=== PATIENT | male | born 1985 | race Caucasian/White ===

== ENCOUNTER 2018-01-01 23:34 | Emergency (ER) | payer OTHER ==
[~2018-01-01] VITALS: Ht 170.2 cm; Wt 135.6 kg
[~2018-01-01 23:34] MED LIST: CLIN300 PO; HYDACE5 PO; IBUP400; PROC5 PO; RXHYDACE PO
[2018-01-02 00:11] LABS: BASOPHILS ABSOLUTE AUTO 0.09 K/mm3 (0.00-0.23); BASOPHILS PERCENT AUTO 1 % (0-2); EOSINOPHILS ABSOLUTE AUTO 0.56 K/mm3 (0.00-0.68); EOSINOPHILS PERCENT AUTO 3 % (0-6); Hematocrit 44.1 % (37.0-53.0); Hemoglobin 14.4 g/dL (13.5-17.5); IMMATURE GRAN ABSOLUTE AUTO 0.06 K/mm3 (0.00-0.10); IMMATURE GRAN PERCENT AUTO 0 % (0-1); LYMPHOCYTES ABSOLUTE AUTO 1.25 K/mm3 (0.84-5.20); LYMPHOCYTES PERCENT AUTO 7 % (21-46); MONOCYTES ABSOLUTE AUTO 0.94 K/mm3 (0.16-1.47); MONOCYTES PERCENT AUTO 6 % (4-13); Mean Corpuscular HGB 28.6 pg (26.0-34.0); Mean Corpuscular HGB Conc 32.7 g/dL (31.5-36.5); Mean Corpuscular Volume 88 fL (80-100); Mean Platelet Volume 11.3 fL (9.1-12.4); NEUTROPHILS ABSOLUTE AUTO 13.97 K/mm3 (1.96-9.15); NEUTROPHILS PERCENT AUTO 83 % (41-73); Platelet Count 319 K/mm3 (150-400); RDW Coefficient Variation 13.8 % (11.7-14.2); RDW Standard Deviation 44.2 fL (35.1-46.3); Red Blood Cell Count 5.03 M/mm3 (4.30-5.90); White Blood Cell Count 16.87 K/mm3 (4.00-11.30)
[2018-01-02 00:28] LABS: Alanine Aminotransfer (ALT/SGP 28 U/L (12-78); Albumin, Blood 3.8 g/dL (3.4-5.0); Albumin/Globulin Ratio 0.8 (0.8-1.8); Alk Phos 131 U/L (50-136); Anion Gap 8 mmol/L (6-16); Aspartate Aminotrans (AST/SGOT 20 U/L (12-37); Bilirubin, Total 0.9 mg/dL (0.1-1.0); Blood Urea Nitrogen 10 mg/dL (8-24); Bun/Creatinine Ratio 13.7 (12.0-20.0); CO2, Blood 27 mmol/L (21-32); Chloride, Blood 104 mmol/L (98-108); Creatinine, Blood 0.73 mg/dL (0.60-1.20); Globulin, Blood 4.9 g/dL (2.2-4.0); Glomerular Filtration Rate >60 (60-); Glucose, Blood 129 mg/dL (70-99); Potassium, Blood 4.2 mmol/L (3.5-5.5); Sodium, Blood 139 mmol/L (136-145); Total Protein, Blood 8.7 g/dL (6.4-8.2)
[2018-01-02 02:02] LABS: Influenza A Negative (NEGATIVE); Influenza B Negative (NEGATIVE)
[2018-01-02] MEDS ORDERED: Zithromax250 MG PO (02:44)
== END 2018-01-02 03:04 | disposition home or self-care (01) ==
LOC: ER 23:34
PROVIDERS: Emergency Medicine
DX: J18.9 Pneumonia, unspecified organism (principal); J98.01 Acute bronchospasm
CPT/HCPCS: 36415; 71046; 80053; 85025; 87804; 94640; 99284-25

== ENCOUNTER 2018-07-14 21:21 | Emergency (ER) | payer OTHER ==
[~2018-07-14] VITALS: Ht 172.7 cm; Wt 156.5 kg
[~2018-07-14 21:21] MED LIST changes: +Zithromax250 MG PO
[2018-07-14 22:14] LABS: Influenza A Negative (NEGATIVE); Influenza B Negative (NEGATIVE)
== END 2018-07-14 23:32 | disposition left against medical advice (07) ==
LOC: ER 21:21
PROVIDERS: Emergency Medicine
DX: Z53.21 Procedure and treatment not carried out due to patient leaving prior to being seen by health care provider (principal)
CPT/HCPCS: 71046; 87804; 99283-25

== ENCOUNTER 2022-02-06 18:41 | Inpatient (IN) | payer MEDICARE, OTHER ==
[~2022-02-06] VITALS: Ht 182.9 cm; Wt 170.3 kg
[2022-02-06 20:21] LABS: BASOPHILS ABSOLUTE AUTO 0.08 K/mm3 (0.00-0.23); BASOPHILS PERCENT AUTO 1 % (0-2); EOSINOPHILS PERCENT AUTO 5 % (0-6); Hematocrit 42.7 % (37.0-53.0); Hemoglobin 13.9 g/dL (13.5-17.5); IMMATURE GRAN ABSOLUTE AUTO 0.06 K/mm3 (0.00-0.10); IMMATURE GRAN PERCENT AUTO 1 % (0-1); LYMPHOCYTES ABSOLUTE AUTO 1.43 K/mm3 (0.84-5.20); LYMPHOCYTES PERCENT AUTO 14 % (21-46); MONOCYTES ABSOLUTE AUTO 0.52 K/mm3 (0.16-1.47); MONOCYTES PERCENT AUTO 5 % (4-13); Mean Corpuscular HGB 27.6 pg (26.0-34.0); Mean Corpuscular HGB Conc 32.6 g/dL (31.5-36.5); Mean Corpuscular Volume 85 fL (80-100); NEUTROPHILS ABSOLUTE AUTO 7.38 K/mm3 (1.96-9.15); NEUTROPHILS PERCENT AUTO 74 % (41-73); RDW Coefficient Variation 14.5 % (11.7-14.2); RDW Standard Deviation 44.5 fL (35.1-46.3); Red Blood Cell Count 5.03 M/mm3 (4.30-5.90); White Blood Cell Count 9.97 K/mm3 (4.00-11.30)
[2022-02-06 20:26] LABS: Platelet Count 202 K/mm3 (150-400)
[2022-02-06 20:47] LABS: Albumin, Blood 3.6 g/dL (3.4-5.0); Albumin/Globulin Ratio 0.8 (0.8-1.8); Bilirubin, Total 0.9 mg/dL (0.1-1.0); Bun/Creatinine Ratio 16.7 (12.0-20.0); Calcium, Blood 9.3 mg/dL (8.5-10.1); Creatinine, Blood 0.6 mg/dL (0.60-1.20); Globulin, Blood 4.7 g/dL (2.2-4.0); Potassium, Blood 4.4 mmol/L (3.5-5.5); Total Protein, Blood 8.3 g/dL (6.4-8.2)
[2022-02-06 20:49] LABS: Influenza A, PCR NEGATIVE (NEGATIVE); Influenza B, PCR NEGATIVE (NEGATIVE); Resp Syncytial Virus, PCR NEGATIVE (NEGATIVE); SARS-Cov-2 (COVID-19) PCR, MMC NEGATIVE (NEGATIVE)
[2022-02-07 04:03] LABS: BASOPHILS ABSOLUTE AUTO 0.01 K/mm3 (0.00-0.23); BASOPHILS PERCENT AUTO 0 % (0-2); EOSINOPHILS ABSOLUTE AUTO 0.01 K/mm3 (0.00-0.68); EOSINOPHILS PERCENT AUTO 0 % (0-6); Hemoglobin 12.3 g/dL (13.5-17.5); IMMATURE GRAN ABSOLUTE AUTO 0.04 K/mm3 (0.00-0.10); IMMATURE GRAN PERCENT AUTO 0 % (0-1); LYMPHOCYTES ABSOLUTE AUTO 0.39 K/mm3 (0.84-5.20); LYMPHOCYTES PERCENT AUTO 3 % (21-46); MONOCYTES ABSOLUTE AUTO 0.08 K/mm3 (0.16-1.47); MONOCYTES PERCENT AUTO 1 % (4-13); Mean Corpuscular HGB 27.7 pg (26.0-34.0); Mean Corpuscular HGB Conc 32.4 g/dL (31.5-36.5); Mean Corpuscular Volume 86 fL (80-100); NEUTROPHILS ABSOLUTE AUTO 11.65 K/mm3 (1.96-9.15); NEUTROPHILS PERCENT AUTO 96 % (41-73); Platelet Count 281 K/mm3 (150-400); RDW Coefficient Variation 14.3 % (11.7-14.2); RDW Standard Deviation 44.4 fL (35.1-46.3); Red Blood Cell Count 4.44 M/mm3 (4.30-5.90); White Blood Cell Count 12.18 K/mm3 (4.00-11.30)
[2022-02-07 04:28] LABS: Albumin, Blood 3.3 g/dL (3.4-5.0); Albumin/Globulin Ratio 0.7 (0.8-1.8); Bilirubin, Total 0.4 mg/dL (0.1-1.0); Bun/Creatinine Ratio 20.5 (12.0-20.0); Creatinine, Blood 0.58 mg/dL (0.60-1.20); Globulin, Blood 4.5 g/dL (2.2-4.0); Potassium, Blood 3.4 mmol/L (3.5-5.5); Total Protein, Blood 7.8 g/dL (6.4-8.2)
--- NOTE | 2022-02-07 05:42 | NUR ---
ADMIT NOTE/SHIFT SUMMARY PT ARRIVED TO PCU FROM ED VIA ED STRETCHER AT APPROX 2300. PT WAS SLID BY 5 STAFF FROM ED STRETCHER TO PCU BED. PT ALERT, ORIENTED. ACCOMPANIED BY MOM, WHO IS PNEUMATIC TOOL REPAIRER. PT ON 2L NC, DYSPNEA W/ MOVEMENT, WHEEZES IN BOTTOM LOBES. VSS. BRIEF CHANGED UPON ADMIT TO ROOM, SOILED. PT BEGAN TO BE AUDIBLEY WHEEZY DURING NOC WHILE SLEEPING. RT CALLED TO GIVE BREATHING TX W/ SOME RELIEF. MAG INFUSED PER EMAR. PT ORIENTED TO ROOM, CALL LIGHT. WATCHED TV WHEN ARRIVED TO ROOM, THEN SLEPT MOST OF NIGHT. CALL LIGHT IN REACH.
--- NOTE | 2022-02-07 15:47 | NUR ---
Upon receiving a referral for spiritual care, I visit pt. Pt is sleeping and pt's mother, Skylar, is bedside. She tells me about pt and how she and her adopted him him when he was 2 days old along with his 1 and 1/2 y/o brother both who are developmentally disabled. She also talks about her children and the of her 6 yrs ago. She tells me about pt's and her Jewish beliefs. I provide therapeutic listening and prayer. Skylar shows signs of being encouraged and voices appreciation for the visit.
--- NOTE | 2022-02-07 18:00 | NUR ---
SHIFT SUMMARY PT ALERT, ORIENTED TO SELF, FAMILY. PT COOPERAVTIVE OF CARE. PT TITRATED OFF OF OXYGEN, SATS REMAIN IN THE 90'S ON RA. OTHER VSS THROUGHOUT SHIFT. NO REPORT OF CHEST PAIN/PRESSURE THROUGHOUT SHIFT. NO REPORT OF CHEST PAIN/PRESSURE THROUGHOUT SHIFT. PT INCONTINENT OF URINE AND STOOL, ATTENDS IN PLACE. ATTENDS CHANGED AND BEDDING CHANGED TODAY. PT ABLE TO STAND AND AMBULATE TO RECLINER, SBA, TOLERATED WELL.
--- NOTE | 2022-02-07 21:24 | NUR ---
ASSUMPTION OF CARE THIS RN ASSUMED CARE OF PATIENT AT 1900. REPORT TAKEN FROM JEREMY RN. PATIENT VITALS STABLE; PATIENT ON RA; RT AT BEDSIDE THIS EVENING. WHEEZING AUDIBLE BY THIS RN. PATIENT DENIES SOB AT THIS TIME. PATIENT'S MOTHER AT BEDSIDE. PATIENT WAS CALM AND COOPERATIVE WITH CARE. PATIENT AND MOTHER REPORTED TO THIS RN THAT HE WAS ABLE TO CHANGE HIS ATTENDS BY HIMSELF BEFORE I CAME INTO THE ROOM DUE TO PATIENT VOIDING; REPORTED INCONTINENCE BY PREVIOUS RN. WILL CONTINUE TO MONITOR UNTIL SHIFT CHANGE AT 0700 TOMORROW.
--- NOTE | 2022-02-08 03:57 | NUR ---
SHIFT SUMMARY PATIENT CALM AND COOPERATIVE THROUGHOUT SHIFT. MOTHER REMAINED AT BEDSIDE THROUGH THE NIGHT DUE TO PATIENT BEING DEVELOPMENTALLY DELAYED. PATIENT WAS ABLE TO CHANGE SOILED ATTENDS WITH MOTHERS HELP DURING THE SHIFT, REFUSED NEEDING TO BE CHANGED AROUND 0330; REPORTED INCONTINENCE FROM PREVIOUS SHIFT RN. PATIENT MOVES SELF INDEPENDENTLY IN BED. PATIENT ON RA WITH O2 SATS >90% THROUGHOUT THE SHIFT. BREATHING TX GIVEN NEEDED. NO AUDIBLE WHEEZES HEARD AT THIS TIME. PATIENT WITH STABLE VITALS. PATIENT APPEARS TO BE RESTING COMFORTABLY WITH EQUAL CHEST RISE/FALL NOTED. BED IN LOWEST POSITION AND CALL LIGHT WITHIN REACH. WILL CONTINUE TO MONITOR UNTIL SHIFT CHANGE AT 0700.
--- NOTE | 2022-02-08 10:03 | NUR ---
PAULETTE WAS UP AND IN THE CHAIR FOR BREAKFAST THIS MORNING. HE WAS ANXIOUS TO SEE WHAT HE WOULD GET FOR BREAKFAST, HE DENIED ANY SOB OR DYSPNEA, THEN AFTER ABOUT A HALF HOUR WENT BACK TO BED AND FELT MORE LIKE HE WAS WHEEZING AND NEEDING A TREATMENT. RT WAS CALLED AND HE RECEIVED HIS TREATMENT. HE IS CURRENTLY SLEEPING, MOM AT HIS BEDSIDE. CAME BY AND SAID HE WOULD PROBABLY BE READY FOR DISCHARGE THIS AFTERNOON.
--- NOTE | 2022-02-08 10:41 | NUR ---
LISA AWAKENS AND SITS UP, EASILY SWALLOWING HIS PILLS WITH SOME ORANGE JUICE. HE IS SLIGHTLY SHORT OF BREATH AND A LITTLE WHEEZY, BUT HE DENIES A BREATHING TREATMENT AT THIS TIME. HE IS ABLE TO MOVE INDEPENDENTLY IN BED AND REPOSITION HIMSELF, HE IS ABLE TO MAKE HIS NEEDS KNOWN. MOTHER REMAINS AT THE BEDSIDE.
--- NOTE | 2022-02-08 11:52 | NUR ---
PT REPORTED TO HAVE 6.31 AND 7.12 SECOND PAUSES WITHIN A FEW MINUTES OF EACH OTHER (SEE RECORD). PT WAS LYING IN RECLINING POSITION IN THE BED, SLEEPING. NO NOTICEABLE DISCOMFORT OR APNEIC PERIODS. PT AWAKENED BY THIS RN AND DENIED ANY COMPLAINTS. CALL TO , ORDERS RECEIVED. PT NOW UP TO CHAIR, EATING HIS LUNCH, CONTINUES TO DENY ANY COMPLAINTS.
[2022-02-08 12:26] LABS: Albumin, Blood 3.2 g/dL (3.4-5.0); Albumin/Globulin Ratio 0.7 (0.8-1.8); Bilirubin, Total 0.2 mg/dL (0.1-1.0); Bun/Creatinine Ratio 32.5 (12.0-20.0); Calcium, Blood 8.9 mg/dL (8.5-10.1); Creatinine, Blood 0.52 mg/dL (0.60-1.20); Globulin, Blood 4.3 g/dL (2.2-4.0); Magnesium, Blood 2.4 mg/dL (1.6-2.4); Total Protein, Blood 7.5 g/dL (6.4-8.2)
--- NOTE | 2022-02-08 14:03 | NUR ---
DR. NERI JUST SAW PAULETTE, HE DENIED ANY PROBLEMS FOR HER. SHE IS ORDERING AN ECHO AND AN EKG. TOLD THE MOTHER THAT SHE BELIEVES THIS COULD BE RELATED TO SLEEP APNEA AND THAT HE SHOULD BE TESTED ON A FOLLOW UP BASIS.
--- NOTE | 2022-02-08 14:45 | NUR ---
ECHO BEING PERFORMED, PT DOING WELL DURING PROCEDURE.
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
--- NOTE | 2022-02-09 04:05 | NUR ---
END OF SHIFT SUMMARY NO ACCUTE EVENT PT HAS BEEN VITSLY STABLE HAS HAD NO PAUSES WITH HR. PT DID EXPERIENCE A PERIOD WHEN HE WOKE UP STARTALED. HES ALSO WAS SNORING. HE SEEMS TO HAVE A LOT OF ORAL SECREATIONS AND COUGH IS PRODUCTIVE. WITH ASSCULTATION PT HAS INSIPRATORY WEEZES WHICH MOTHER STATES IS BASELINE DID REQUEST A PRN NEB TREATMENT PT IS ANTICIPATING GOING HOME. WILL PASS TO DAYSHIFT PT MIGHT BENIFIT FROM A SLEEP APNEA EVALUATION. WILL CONTINUE MONITORE AND REPORT TO ONCOMING RN
[2022-02-09] MEDS ORDERED: ALBU90OI INH (10:26)
[2022-02-09] MEDS ORDERED: ALBU90OI6 INH (10:27)
[2022-02-09] MEDS ORDERED: FLUTICASONE-SA1 EAC1 INH (10:28)
[2022-02-09] MEDS ORDERED: OMEP20ER PO (10:29)
[2022-02-09] MEDS ORDERED: PRED20 PO (10:30)
--- NOTE | 2022-02-09 10:45 | NUR ---
DISCHARGE SUMMARY PT ALERT & ORIENTED TO SELF/FAMILY, MOTHER AT BEDSIDE, DENIES SOB, TEO PO, VOIDING/ATTENDS ON, IV DC'D. DC INS PROVIDED. MOM REP UNDERSTANDING THAT MEDS ARE AT [facility] (CALLED AND CONFIRMED THEY ARE OPEN UNTIL 2PM TODAY), FU WITH PCP TO GET SLEEP STUDY SCHEDULED, AND CALL AND GO TO [facility] ON Friday02/11/22 FOR PLACEMENT OF ZIO PATCH. LEFT FLOOR (DECLINING WC) TO GO HOME WITH MOM WITH ALL PERSONAL POSSESSIONS INCLUDING DC PACKET.
== END 2022-02-09 10:43 | disposition home or self-care (01) | DRG 189 ==
LOC: ER 18:41 → PCU 02-07 00:19
PROVIDERS: Internal Medicine; Physician Assistant; ADMIT Internal Medicine
DX: J96.01 Acute respiratory failure with hypoxia (principal); J45.21 Mild intermittent asthma with (acute) exacerbation; Z68.42 Body mass index [BMI] 45.0-49.9, adult; Z20.822 Contact with and (suspected) exposure to COVID-19; G47.33 Obstructive sleep apnea (adult) (pediatric); F81.9 Developmental disorder of scholastic skills, unspecified; D72.828 Other elevated white blood cell count; T38.0X5A Adverse effect of glucocorticoids and synthetic analogues, initial encounter; E66.9 Obesity, unspecified; E87.6 Hypokalemia; I49.5 Sick sinus syndrome; Q86.0 Fetal alcohol syndrome (dysmorphic)
CPT/HCPCS: 0241U; 36415; 71046; 80053; 83735; 83880; 84484; 85025; 93005; 93010; 93306; 94640; 94644; 94645; 94664; 94760; 94762; 96365; 96375; 99285-25; A9270; J1650; J2930; J3475

== ENCOUNTER 2023-02-03 16:27 | Observation (INO) | payer MEDICARE, OTHER ==
[~2023-02-03] VITALS: Ht 172.7 cm; Wt 165.2 kg
[~2023-02-03 16:27] MED LIST changes: +ALBU90OI INH; +ALBU90OI6 INH; +FLUTICASONE-SA1 EAC1 INH; +OMEP20ER PO; +PRED20 PO
[2023-02-03 18:47] LABS: BASOPHILS ABSOLUTE AUTO 0.08 K/mm3 (0.00-0.23); BASOPHILS PERCENT AUTO 1 % (0-2); EOSINOPHILS ABSOLUTE AUTO 0.26 K/mm3 (0.00-0.68); EOSINOPHILS PERCENT AUTO 3 % (0-6); Hematocrit 27.4 % (37.0-53.0); Hemoglobin 7.8 g/dL (13.5-17.5); IMMATURE GRAN ABSOLUTE AUTO 0.04 K/mm3 (0.00-0.10); IMMATURE GRAN PERCENT AUTO 1 % (0-1); LYMPHOCYTES PERCENT AUTO 19 % (21-46); MONOCYTES ABSOLUTE AUTO 0.43 K/mm3 (0.16-1.47); MONOCYTES PERCENT AUTO 5 % (4-13); Mean Corpuscular HGB 24.5 pg (26.0-34.0); Mean Corpuscular HGB Conc 28.5 g/dL (31.5-36.5); Mean Corpuscular Volume 86 fL (80-100); Mean Platelet Volume 11.8 fL (9.1-12.4); NEUTROPHILS ABSOLUTE AUTO 5.87 K/mm3 (1.96-9.15); NEUTROPHILS PERCENT AUTO 71 % (41-73); Platelet Count 323 K/mm3 (150-400); RDW Coefficient Variation 18.4 % (11.7-14.2); RDW Standard Deviation 58.2 fL (35.1-46.3); Red Blood Cell Count 3.19 M/mm3 (4.30-5.90); White Blood Cell Count 8.28 K/mm3 (4.00-11.30)
[2023-02-03 18:55] LABS: Albumin, Blood 3.4 g/dL (3.4-5.0); Albumin/Globulin Ratio 0.8 (0.8-1.8); Bilirubin, Total 0.5 mg/dL (0.1-1.0); Calcium, Blood 9.1 mg/dL (8.5-10.1); Creatinine, Blood 0.77 mg/dL (0.60-1.20); Potassium, Blood 4.3 mmol/L (3.5-5.5); Total Protein, Blood 7.4 g/dL (6.4-8.2)
[2023-02-03] MEDS ORDERED: VITAMIN D310 MC4 (19:45)
[2023-02-03 22:09] LABS: International Normalized Ratio 1.02; Prothrombin Time Results 10.7 Sec (9.7-11.5)
[2023-02-04 04:35] VITALS: BP 139/79
--- NOTE | 2023-02-04 06:48 | NUR ---
ARRIVAL TO PCU/SHIFT SUMMARY RECEIVED REPORT FROM SOLAR PROCESS ENGINEER CHRISTINE HERNÁNDEZ ~0405 THIS AM. PT SHORTLY ARRIVED TO PCU 15 ACCOMPANIED BY PT'S MOTHER. PT TRANSFERRED VIA 1 STAFF ASSIST FROM ER VANESSA TO PCU BED. A/Ox2 AND MOSTLY COOPERATIVE WITH CARE. HX OF ALCOHOL SYNDROME WITH SPEECH/COGNITIVE DIFFICULTIES NOTED. SLOW TO RESPOND AND CAN BE CONFUSED/IMPULSIVE, BUT ABLE TO BE REDIRECTED. CARDIAC, ARRIVED IN SR 60-80'S WITH NO C/O CP, PRESSURE, OR DIZZINESS. SBP HAS BEEN STABLE RANGING 110-140'S. RESPIRATORY, MAINTAINS SPO2 >95% ON RA WITH NO C/O SOB OR DYSPNEA. GI/, BS PRESENT IN ALL QUADRANTS, DENIES ANY N/V OR ABD TENDERNESS. CONTINUES TO BE INCONTINENT OF URINE AND STOOL. ARRIVED TO PCU WITH SOILED ATTENDS. BLACK TARRY STOOL NOTED. PROTONIX gtt INFUSING PER EMAR. EDEMA NOTED IN BLE, BUE, AND ABD. SKIN BREAK DOWN NOTED AROUND BUTTOCKS/COCCYX. SEE PICTURES IN CHART. ASSESSED PT FOR RISKS OF ANY IGNITION SOURCES WELL BEHAVIORS FOR INCREASED RISKS OF FIRE DANGER. PT EDUCATED ON COMMON SOURCES OF IGNITION WELL NEED TO KEEP A SAFE ENVIRONMENT. PT VOICED UNDERSTANDING. NO NEW ORDERS AT THIS TIME, WILL REPORT TO ONCOMING RN. TIFFNAI KHAN OF THIS NOTE
[2023-02-04 06:56] VITALS: BP 97/62
--- NOTE | 2023-02-04 08:00 | NUR ---
Patient resting in bed and needs encouragment to verbal communicate. Speech is slurred but understandable. He is on RA and sats >90%. He self positions for comfort. He has not had BM and no current signs of GIB. He has two 20ga IV's in LACHELLE and has protonix infusing. Family at bedside. Family has no current needs
[2023-02-04 09:22] LABS: Hematocrit 24.6 % (37.0-53.0); Hemoglobin 7.3 g/dL (13.5-17.5)
--- NOTE | 2023-02-04 11:30 | NUR ---
Patient pulled both right arm IV's out accidentally r/t rolling in bed for comfort. CN placed PowerGlide in LACHELLE and is infusing protonix. Did oral care and then dental did consult per request and will follow while here. Mother states he does not allow her to do oral care and patient refuses to go to dentist. He continues to follow simple caommands and have simple conversations. He has 1-2 + edema distal extremities. Still no current signs of GIB. Family is at bedside. We are continueing to look to transfer out for GI consult and mother states she prefers to stay here and wait for consult on
[2023-02-04 11:51] VITALS: BP 111/70
[2023-02-04 14:14] VITALS: BP 111/70
--- NOTE | 2023-02-04 14:45 | NUR ---
Patient received bath. Patient is being transferred to [facility]. Protonix continues. All belonging taken by mother and [facility] ambulance arrived to transport. Patient placed in sweats and self tranferred to [facility].
== END 2023-02-04 15:24 | disposition short-term general hospital (02) ==
LOC: ER 16:27 → PCU 16:28 → ER 02-04 02:41 → PCU 02-04 02:41
PROVIDERS: Internal Medicine; Physician Assistant; Student in an Organized Health Care Education/Training Program; ADMIT Internal Medicine
DX: D62 Acute posthemorrhagic anemia (principal); J45.909 Unspecified asthma, uncomplicated; K92.2 Gastrointestinal hemorrhage, unspecified; Q86.0 Fetal alcohol syndrome (dysmorphic)
CPT/HCPCS: 36415; 80053; 82271; 85014; 85018; 85025; 85610; 86850; 86900; 86901; 94760; 96365; 96366; 96367; 96376; 99284-25; A9270; C9113; G0378; J0696

== ENCOUNTER 2023-06-19 08:42 | Day surgery (SDC) | payer MEDICARE, OTHER ==
[~2023-06-19] VITALS: Ht 170.2 cm; Wt 155.6 kg
[~2023-06-19 08:42] MED LIST changes: +Lactated Ringer's 1,000 ML IV SCH; +OMEP20ER; +VITAMIN D310 MC4
[2023-06-19 09:28] VITALS: BP 127/81
[2023-06-19] MEDS ORDERED: ALBU90OI INH (09:50)
--- NOTE | 2023-06-19 09:57 | NUR ---
PT IN SDS. Mother and brother at bedside. Medical history obtained from mother as patient has cognitive delay from alcohol syndrome. Ambulatory in Day Surgery. History, Chart, Medications and Allergies reviewed before start of procedure. Patient confirms NPO status and agrees with scheduled surgery. Lungs clear T/O to Auscultation. Pre-Op teaching done. Pt and mother verbalizes understanding. Patient States Post-Procedure ride home has been arranged. Patient states prep results clear.
[2023-06-19] MEDS ORDERED: Dexmedetomidine HCL 200 MCG / 2 ML ONE (10:10)
--- NOTE | 2023-06-19 10:25 | NUR ---
06/19/23 1025 Pavel Mcmullen History, Chart, Medications and Allergies reviewed before start of procedure.MONITOR INTACT WITH CONTINUOUS PULSE OXIMETRY, CONTINUOUS END TITAL CO2, AND INTERMITTENT BLOOD PRESSURE.3-LEAD EKG REVIEWED WITH PHYSICIAN PRIOR TO START OF PROCEDURE.O2 VIA N/C INTACT THROUGHOUT SEDATION/PROCEDURE.See Anesthesia record.
[2023-06-19] MEDS ORDERED: propofoL 20 ML IV ONE (10:38)
[2023-06-19] MEDS ORDERED: Lidocaine HCl 4% 5 ML SDA ONE (10:38)
[2023-06-19 11:32] VITALS: BP 126/81
[2023-06-19 11:45] VITALS: BP 117/79
--- NOTE | 2023-06-19 11:50 | NUR ---
Patient up to Ambulate independently. Gait steady. Discharge instructions reviewed with patient. Patient verbalizes understanding. Copy given to patient to take home, WELL FAMILY. Patient States Post-Procedure ride home has been arranged. Discharged via wheelchair to private car for ride home.
== END 2023-06-19 11:50 | disposition home or self-care (01) ==
LOC: ORSCMMR 08:42 → ORD 10:00 → ORSCMMR 11:50
PROVIDERS: Internal Medicine Gastroenterology
PROC: 0DB68ZX Excision of Stomach, Via Natural or Artificial Opening Endoscopic, Diagnostic (ICD-10-PCS; principal; 2023-06-19 10:00)
PROC: 0DB48ZX Excision of Esophagogastric Junction, Via Natural or Artificial Opening Endoscopic, Diagnostic (ICD-10-PCS; principal; 2023-06-19 10:00)
DX: K21.00 Gastro-esophageal reflux disease with esophagitis, without bleeding (principal); Z87.11 Personal history of peptic ulcer disease; D64.9 Anemia, unspecified; J45.909 Unspecified asthma, uncomplicated; Q86.0 Fetal alcohol syndrome (dysmorphic); K44.9 Diaphragmatic hernia without obstruction or gangrene; E66.01 Morbid (severe) obesity due to excess calories; Z68.43 Body mass index [BMI] 50.0-59.9, adult; Z79.899 Other long term (current) drug therapy
CPT/HCPCS: 88305; 88342; J2001; J2704; J7120